=== PATIENT | female | born 1940 | race Two or more races ===

== ENCOUNTER 2017-10-09 09:08 | Outpatient (CLI) | payer OTHER | END 2017-10-09 09:21 | disposition home or self-care (01) | LOC: RAD 501 09:08 | DX: M17.11 Unilateral primary osteoarthritis, right knee (principal); M17.12 Unilateral primary osteoarthritis, left knee ==

== ENCOUNTER 2018-01-19 14:43 | Outpatient (CLI) | payer OTHER ==
[2018-02-19] MEDS ORDERED: MULTI VITAMIN1 EACH PO (14:24)
== END 2018-01-19 15:00 | disposition home or self-care (01) ==
LOC: NUCLEAR 14:43
DX: M81.0 Age-related osteoporosis without current pathological fracture (principal); M85.9 Disorder of bone density and structure, unspecified

== ENCOUNTER 2018-01-24 10:37 | Outpatient (CLI) | payer OTHER ==
[2018-02-19] MEDS ORDERED: MULTI VITAMIN1 EACH PO (14:24)
== END 2018-01-24 10:41 | disposition home or self-care (01) ==
LOC: RAD 501 10:37
DX: M17.11 Unilateral primary osteoarthritis, right knee (principal); M17.12 Unilateral primary osteoarthritis, left knee

== ENCOUNTER 2018-02-09 08:03 | Outpatient (CLI) | payer OTHER ==
[2018-02-19] MEDS ORDERED: MULTI VITAMIN1 EACH PO (14:24)
== END 2018-02-09 08:16 | disposition home or self-care (01) ==
LOC: LAB 08:03
DX: D64.89 Other specified anemias (principal); E88.89 Other specified metabolic disorders; D68.8 Other specified coagulation defects; N39.0 Urinary tract infection, site not specified; B95.62 Methicillin resistant Staphylococcus aureus infection as the cause of diseases classified elsewhere; E83.42 Hypomagnesemia; E03.8 Other specified hypothyroidism; E11.9 Type 2 diabetes mellitus without complications; E55.9 Vitamin D deficiency, unspecified

== ENCOUNTER 2018-02-09 09:21 | Outpatient (CLI) | payer OTHER ==
[2018-02-19] MEDS ORDERED: MULTI VITAMIN1 EACH PO (14:24)
== END 2018-02-09 09:43 | disposition home or self-care (01) ==
LOC: RAD 501 09:21
DX: Z76.89 Persons encountering health services in other specified circumstances (principal)

== ENCOUNTER 2018-02-16 10:08 | Outpatient (CLI) | payer OTHER ==
[2018-02-19] MEDS ORDERED: MULTI VITAMIN1 EACH PO (14:24)
== END 2018-02-16 10:15 | disposition home or self-care (01) ==
LOC: LAB 10:08
DX: E55.9 Vitamin D deficiency, unspecified (principal); M85.88 Other specified disorders of bone density and structure, other site

== ENCOUNTER 2018-02-27 07:00 | Day surgery (SDC) | payer OTHER ==
[~2018-02-27] VITALS: Ht 154.9 cm; Wt 61.2 kg
[~2018-02-27 07:00] MED LIST: MULTI VITAMIN1 EACH PO
== END 2018-02-28 08:00 | disposition home or self-care (01) ==
LOC: CIR.AMB 07:00 → SURH 07:00 → EDSTATUS 12:15 → O/R 13:22 → SURG 13:22 → CIR.AMB 02-28 08:00 → SURG 02-28 15:01
DX: M17.11 Unilateral primary osteoarthritis, right knee (principal)
CPT/HCPCS: 27447; C1776

== ENCOUNTER 2019-02-20 14:18 | Outpatient (CLI) | payer OTHER ==
[~2019-02-20 14:18] MED LIST changes: +VOLTAREN100 GM TOP
== END 2019-02-20 14:28 | disposition home or self-care (01) ==
LOC: RAD 501 14:18
DX: Z98.41 Cataract extraction status, right eye (principal); H25.011 Cortical age-related cataract, right eye

== ENCOUNTER 2019-07-24 16:05 | Emergency (ER) | payer OTHER ==
[~2019-07-24] VITALS: Ht 152.4 cm; Wt 59.0 kg
== END 2019-07-24 18:07 | disposition home or self-care (01) ==
LOC: ER 16:05
DX: S01.121A Laceration with foreign body of right eyelid and periocular area, initial encounter (principal); W18.09XA Striking against other object with subsequent fall, initial encounter; Y93.89 Activity, other specified; Y92.511 Restaurant or cafe as the place of occurrence of the external cause; Y99.8 Other external cause status

== ENCOUNTER 2019-07-25 10:42 | Outpatient (CLI) | payer OTHER | END 2019-07-25 10:44 | disposition home or self-care (01) | LOC: RAD 10:42 | DX: S60.211A Contusion of right wrist, initial encounter (principal) ==

== ENCOUNTER 2019-07-31 09:31 | Emergency (ER) | payer OTHER ==
[~2019-07-31] VITALS: Ht 154.9 cm; Wt 58.5 kg
== END 2019-07-31 10:45 | disposition home or self-care (01) ==
LOC: ER 09:31
DX: T81.89XA Other complications of procedures, not elsewhere classified, initial encounter (principal)

== ENCOUNTER → 2019-08-03 | Emergency (ER) | payer OTHER ==
[~2019-08-03] VITALS: Ht 157.5 cm; Wt 58.5 kg
== END | disposition home or self-care (01) ==
LOC: ER 09:08
DX: Z48.02 Encounter for removal of sutures (principal)

== ENCOUNTER 2021-06-14 07:30 | Outpatient (CLI) | payer OTHER | END 2021-06-14 07:40 | disposition home or self-care (01) | LOC: PPH VACUNA 07:30 | PROVIDERS: ATTEND Emergency Medicine Pediatric Emergency Medicine | DX: Z23 Encounter for immunization (principal) ==

== ENCOUNTER 2021-12-15 08:00 | Outpatient (CLI) | payer OTHER | END 2021-12-15 08:30 | disposition home or self-care (01) | LOC: PPH VACUNA 08:00 | PROVIDERS: ATTEND Emergency Medicine Pediatric Emergency Medicine | DX: Z23 Encounter for immunization (principal) ==

== ENCOUNTER 2022-06-10 09:35 | Outpatient (CLI) | payer OTHER | END 2022-06-10 09:40 | disposition home or self-care (01) | LOC: PPH VACUNA 09:35 | PROVIDERS: ATTEND Emergency Medicine Pediatric Emergency Medicine | DX: Z23 Encounter for immunization (principal) ==

== ENCOUNTER 2023-02-03 14:11 | Outpatient (CLI) | payer OTHER | END 2023-02-03 14:25 | disposition home or self-care (01) | LOC: PPH VACUNA 14:11 | PROVIDERS: ATTEND Emergency Medicine Pediatric Emergency Medicine | DX: Z23 Encounter for immunization (principal) ==

== ENCOUNTER 2023-04-21 15:43 | Outpatient (CLI) | payer OTHER | END 2023-04-21 15:45 | disposition home or self-care (01) | LOC: RAD 15:43 | PROVIDERS: ATTEND Internal Medicine | DX: Z01.810 Encounter for preprocedural cardiovascular examination (principal); I10 Essential (primary) hypertension; M54.59 Other low back pain; M17.11 Unilateral primary osteoarthritis, right knee; E78.9 Disorder of lipoprotein metabolism, unspecified; E55.9 Vitamin D deficiency, unspecified; E11.51 Type 2 diabetes mellitus with diabetic peripheral angiopathy without gangrene; E66.8 Other obesity ==

== ENCOUNTER 2023-06-01 09:12 | Outpatient (CLI) | payer OTHER | END 2023-06-01 09:20 | disposition home or self-care (01) | LOC: SONOGRAMA 09:12 | PROVIDERS: ATTEND Internal Medicine | DX: E04.8 Other specified nontoxic goiter (principal) ==